=== PATIENT | female | born 1990 | race Caucasian/White ===

== ENCOUNTER 2019-02-19 09:03 | Day surgery (SDC) | payer MEDICAID ==
[~2019-02-19] VITALS: Ht 170.2 cm; Wt 78.5 kg
[~2019-02-19 09:03] MED LIST: DULCOLAX STOOL100 MG PO; SPRINTEC 28 DA1 EAC1 PO
[2019-02-19 09:29] LABS: CALC OSMOLALITY 282 mosm/kg (275-300); CALCIUM 8.5 mg/dL (8.5-10.1); CARBON DIOXIDE 25.3 mmol/L (21.0-32.0); CHLORIDE - SERUM 109 mmol/L (98-107); CREATININE - SERUM 0.8 mg/dL (0.6-1.3); GLUCOSE 86 mg/dL (74-106); POTASSIUM - SERUM 4.2 mmol/L (3.5-5.1); SODIUM 143 mmol/L (136-145); UREA NITROGEN 9 mg/dL (7-18); eGFR NON AFRICAN AMERICAN 90 mL/min (90-120)
[2019-02-19 09:39] LABS: BASOPHILS 0.5 % (0-2); EOSINOPHILS 1.4 % (0-7); HEMATOCRIT 37.8 % (36.0-48.0); HEMOGLOBIN 12.6 g/dL (12-16); MCHC 33.3 g/dL (31.0-37.0); MCV 87.1 fL (80.0-100.0); MEAN PLATELET VOLUME 10.7 fL (7.4-10.4); MONOCYTES 9.3 % (2-11); NEUTROPHILS 59.8 % (40-80); PLATELET COUNT 182 10x3/uL (130-400); RBC 4.34 10x6/uL (4.00-5.40); RDW 12.9 % (11.5-14.5); WBC 4.4 10x3/uL (4.8-10.8)
[2019-02-19 10:11] VITALS: BP 127/62; Ht 170.2 cm; Wt 78.5 kg
[2019-02-19 10:31] LABS: HCG URINE NEGATIVE (NEGATIVE)
[2019-02-19 12:57] LABS: HCG URINE NEGATIVE (NEGATIVE)
[2019-02-19] MEDS ORDERED: HYDROCODON-ACE1 EA10 PO (14:10)
--- NOTE | 2019-02-19 15:00 | NUR ---
REC'D FROM RR. FAMILY AT BEDSIDE, DRESSING CDI TO LEFT SIDE AND RECTAL DRESSING.
--- NOTE | 2019-02-19 15:30 | NUR ---
GABRIELLA ADAM SERVED TO PT. FAMILY AT BEDSIDE.
--- NOTE | 2019-02-19 16:00 | NUR ---
TOLERATED DIET. IV DC'D WITH CATHETER INTACT. WRITTEN AND VERBAL DC INST. GIVEN TO PT. RX GIVEN TO SO HE COULD GET IT FILLED. VERBALIZED UNDERSTANDING.
--- NOTE | 2019-02-19 16:15 | NUR ---
DC'D HOME WITH FAMILY VIA PRIVATE VEHICLE. TAKEN TO VEHICLE VIA WC. STABLE AT TIME OF DC.
--- NOTE | 2019-02-20 14:04 | OP ---
PATIENT NAME: KEENAN DUNNE MEDICAL RECORD: [id number] :88 LOCATION:[facility] ADMISSION DATE: SURGEON: JAVIER DUMAS MD DATE OF OPERATION: 02/19/2019 PREOPERATIVE DIAGNOSES: 1. Chronic anal fissure. 2. Gluteal skin tag. 3. Accessory nipple of the left upper quadrant. PROCEDURES: 1. Excision of left upper quadrant third nipple. 2. Excision of gluteal skin tag. 3. Internal sphincterotomy with anal exam under anesthesia. SURGEON: Javier Dumas MD REPORT OF PROCEDURE: The patient's perineal region and left upper quadrant were all prepped and draped in sterile fashion. An ovoid incision was made around an accessory nipple in the left upper quadrant. Electrocautery was used to dissect through subcutaneous tissues and this lesion was completely excised. We irrigated out the wound bed and any bleeding was treated with electrocautery. The subcutaneous tissues were reapproximated with interrupted 3-0 Vicryl and the skin was closed with running subcutaneous 5-0 Monocryl. A 5 mL of 1% lidocaine with epinephrine was infused into the surrounding tissues. The total length of this incision was 3 cm. We then approached the perineal region. On the superior aspect of the gluteal crease, there was anal skin tag. This had a small pedicle, which was treated with electrocautery; and this mass was sent off for permanent specimen. We inspected the area and saw no sign of any active bleeding. We then inspected the patient's anus. A digital rectal exam was performed and it showed no evidence of a mass. We placed the multiple anoscopes and we were able to see the posterior anal fissure. This was actually very close to being healed, but with just minor manipulation, it completely opened up again and exposed the underlying sphincteric musculature. I had difficulty feeling the sphincter muscles laterally, so I just dissected out the sphincter muscles on the posterior aspect through the fissure and released some of the fibers of the muscle on the internal ring using an 11 blade. This relieved some tension to the anus. The wound was irrigated out thoroughly with normal saline. I then reapproximated the edges of the anal fissure longitudinally using a running 2-0 chromic. There was good approximation of the tissue at the conclusion of the case and there was no sign of any bleeding. A piece of Gelfoam dipped in [place] was placed into the anus. The wounds were dressed appropriately. COMPLICATIONS: None. CONDITION: Stable. ANESTHESIA: General endotracheal and local. BLOOD LOSS: 30 mL. TRANSINT:[id number] Voice Confirmation ID: [id number] DOCUMENT ID: [id number] OPERATIVE REPORT [id number] KEENAN DUNNE CHRISTIAN MD at 1404 CC: DEMARCUS SCHREIBER [id number] DICTATION DATE: 02/19/19 1414 PASSENGER SERVICE MANAGER: 02/19/19 1523 [facility] 02/19/19 [id number] [place] [address]
== END 2019-02-19 16:15 | disposition home or self-care (01) ==
LOC: D.OPS 09:03
PROVIDERS: ATTEND Surgery
DX: K60.1 Chronic anal fissure (principal); L91.8 Other hypertrophic disorders of the skin; Q83.3 Accessory nipple; Z01.812 Encounter for preprocedural laboratory examination

== ENCOUNTER → 2020-02-15 12:42 | Outpatient (CLI) | payer MEDICAID ==
[2019-02-19 10:11] VITALS: BMI 27.1
[~2020-02-15 12:42] MED LIST changes: +HYDROCODON-ACE1 EA10 PO
== END | disposition home or self-care (01) ==
LOC: D.CT 12:42
PROVIDERS: ATTEND Family Medicine
DX: R10.30 Lower abdominal pain, unspecified (principal)